=== PATIENT | male | born 1960 | race Caucasian/White ===

== ENCOUNTER 2017-12-09 06:02 | Emergency (ER) | payer BC ==
[2017-12-09] MEDS ORDERED: ASPIRIN 81 MG CHEWABLE TABLET ONE (06:33)
[2017-12-09] MEDS ORDERED: HEPARIN/D5W 25,000 UNIT/500 ML BAG IV ONE (06:34)
[2017-12-09] MEDS ORDERED: METOPROLOL TARTRATE 5 MG/5 ML INJ IV ONE (06:34)
[2017-12-09] MEDS ORDERED: NA CHLORIDE 0.9% 1,000 ML ONE (06:34)
[2017-12-09] MEDS ORDERED: FENTANYL CITR 100 MCG/2 ML ONE (06:34)
[2017-12-09] MEDS ORDERED: ONDANSETRON 4 MG/2 ML VIAL ONE (06:34)
[2017-12-09] MEDS ORDERED: HEPARIN 5000 UNIT/ML 1 ML VIAL ONE (06:35)
[2017-12-09 06:40] LABS: Absolute Lymphocytes (CBC) 1.6 K/uL (0.7-4.9); Absolute Monocytes 0.8 K/uL (0.1-1.3); Absolute Neutrophil 6.9 K/uL (1.8-8.0); Basophils % 0.9 % (0-1.3); Eosinophils % 2.2 % (0-4.4); Hematocrit 48.2 % (39.6-49.0); Lymphocytes % 17.2 % (15.3-44.8); MCH 32.5 pg (27.0-35.0); MCV 93.4 fL (80-100); MPV 8.6 fL (7.6-11.3); Monocytes % 7.9 % (3.3-12.3); RBC Red Blood Cell Count 5.16 M/uL (4.33-5.43)
[2017-12-09 06:46] LABS: Protime INR 1.06
--- NOTE | 2017-12-09 06:51 | EDPHYS ---
Physician Documentation [facility] Name: Seth Mclean Age: 57 yrs Sex: Male : 1960 Arrival Date: 12/09/2017 Time: 06:06 Bed 5 Private MD: ED Physician Jim Song HPI: 12/09 06:22 This 57 yrs old Male presents to ER via Unassigned with complaints of Chest jr8 Pain. 06:22 The patient or guardian reports chest pain that is located primarily in the epigastric jr8 area, anterior chest wall, right. Onset: acutely, this morning. The pain radiates to the right scapula. Associated signs and symptoms: The patient has no apparent associated signs or symptoms. The chest pain is described as causing indigestion, throbing. Duration: The patient or guardian reports a single episode, that is still ongoing. Modifying factors: The symptoms are alleviated by nothing. the symptoms are aggravated by nothing. Severity of pain: At its worst the pain was moderate in the emergency department the pain is unchanged. The patient has not experienced similar symptoms in the past. The patient has not recently seen a physician. Historical: - Allergies: 06:30 No Known Allergies; ea - Home Meds: 06:30 Cozaar Oral [Active]; Wellbutrin 100 mg Oral tab 1 tab 3 times per day [Active]; ea - PMHx: 06:30 Hyperlipidemia; Hypertension; melanoma; ea - PSHx: 06:30 exploratory surgery; ea - Immunization history:: Adult Immunizations up to date. - Social history:: Smoking status: Patient/guardian denies using tobacco. - Ebola Screening: : No symptoms or risks identified at this time. ROS: 06:22 Eyes: Negative for injury, pain, redness, and discharge, ENT: Negative for injury, jr8 pain, and discharge, Neck: Negative for injury, pain, and swelling, Respiratory: Negative for shortness of breath, cough, wheezing, and pleuritic chest pain, Abdomen/GI: Negative for abdominal pain, nausea, vomiting, diarrhea, and constipation, Back: Negative for injury and pain, MS/Extremity: Negative for injury and deformity, Skin: Negative for injury, rash, and discoloration, Neuro: Negative for headache, weakness, numbness, tingling, and seizure. 06:22 Cardiovascular: Positive for chest pain, Negative for edema, orthopnea, palpitations, paroxysmal nocturnal dyspnea. Exam: 06:22 Eyes: Pupils equal round and reactive to light, extra-ocular motions intact. Lids and jr8 lashes normal. Conjunctiva and sclera are non-icteric and not injected. Cornea within normal limits. Periorbital areas with no swelling, redness, or edema. ENT: Nares patent. No nasal discharge, no septal abnormalities noted. Tympanic membranes are normal and external auditory canals are clear. Oropharynx with no redness, swelling, or masses, exudates, or evidence of obstruction, uvula midline. Mucous membranes moist. Neck: Trachea midline, no thyromegaly or masses palpated, and no cervical lymphadenopathy. Supple, full range of motion without nuchal rigidity, or vertebral point tenderness. No Meningismus. Cardiovascular: Regular rate and rhythm with a normal S1 and S2. No gallops, murmurs, or rubs. Normal PMI, no JVD. No pulse deficits. Respiratory: Lungs have equal breath sounds bilaterally, clear to auscultation and percussion. No rales, rhonchi or wheezes noted. No increased work of breathing, no retractions or nasal flaring. Abdomen/GI: Soft, non-tender, with normal bowel sounds. No distension or tympany. No guarding or rebound. No evidence of tenderness throughout. Back: No spinal tenderness. No costovertebral tenderness. Full range of motion. Skin: Warm, dry with normal turgor. Normal color with no rashes, no lesions, and no evidence of cellulitis. MS/ Extremity: Pulses equal, no cyanosis. Neurovascular intact. Full, normal range of motion. Neuro: Awake and alert, GCS 15, oriented to person, place, time, and situation. Cranial nerves II-XII grossly intact. Motor strength 5/5 in all extremities. Sensory grossly intact. Cerebellar exam normal. Normal gait. 06:22 ECG was reviewed by the Attending Physician. Vital Signs: 06:15 BP 189 / 117; Pulse 90; Resp 19; Temp 98.6; Pulse Ox 98% ; Weight 137.89 kg; Height 5 ea ft. 10 in. (177.80 cm); Pain 9/10; 06:34 BP 181 / 118; Pulse 78; Resp 13; Pulse Ox 95% on R/A; ea 06:34 BP 178 / 107; Pulse 77; Resp 15; Pulse Ox 94% on R/A; ea 07:00 BP 160 / 103; Pulse 76; Resp 16 S; Pulse Ox 95% on R/A; jl7 07:15 BP 165 / 100; Pulse 70; Resp 18 S; Pulse Ox 94% on R/A; jl7 07:18 BP 150 / 86; Pulse 75; Resp 15 S; Pulse Ox 95% on R/A; Pain 1/10; jl7 07:30 BP 151 / 97; Pulse 73; Resp 19 S; Pulse Ox 94% on R/A; jl7 07:40 BP 166 / 102; Pulse 72; Resp 17 S; Pulse Ox 96% on R/A; jl7 06:15 Body Mass Index 43.62 (137.89 kg, 177.80 cm) ea MDM: 06:22 Patient medically screened. jr8 06:22 The patient was given aspirin in the Emergency Department. ED course: Dr. Moreno. No jr8 available for heart catheterization . 06:45 ED course: Consulted with Dr. Sethi at [facility] and will see patient for STEMI. jr8 To hold on plavix and TNKase for now. 06:49 Data reviewed: vital signs, nurses notes, lab test result(s), EKG, radiologic studies, jr8 plain films. Data interpreted: Pulse oximetry: on room air is 94 %. Interpretation: normal. Counseling: I had a detailed discussion with the patient and/or guardian regarding: the historical points, exam findings, and any diagnostic results supporting the discharge/admit diagnosis, lab results, radiology results, the need to transfer to another facility, for higher level of care, [facility] does not immediately have the required specialist. 07:08 ED course: Patient is going to be out of the 90 min perfusion window. TnKase initiated .jr8 07:29 ED course: Patient doing well. Pain almost completely alleviated . jr8 15:56 Response to treatment: the patient's symptoms have markedly improved after treatment, gs says pain free after tnk. ED course: pt seen and examined on arrival, supervised care and all decision making. 12/09 06:14 Order name: Basic Metabolic Panel; Complete Time: 07:11 jr8 12/09 06:14 Order name: CBC with Diff; Complete Time: 07:00 jr8 12/09 06:14 Order name: LFT's; Complete Time: 07:11 12/09 06:14 Order name: Magnesium; Complete Time: 07:11 12/09 06:14 Order name: NT PRO-BNP; Complete Time: 07:11 12/09 06:14 Order name: PT-INR; Complete Time: 06:51 12/09 06:14 Order name: Troponin (emerg Dept Use Only); Complete Time: 07:11 12/09 06:14 Order name: XRAY Chest (1 view) 12/09 06:14 Order name: EKG; Complete Time: 06:15 12/09 06:14 Order name: Cardiac monitoring; Complete Time: 06:36 12/09 06:14 Order name: EKG - Nurse/Tech; Complete Time: 06:37 12/09 06:14 Order name: IV Saline Lock; Complete Time: 06:37 12/09 06:14 Order name: Labs collected and sent; Complete Time: 06:37 12/09 06:14 Order name: O2 Per Protocol; Complete Time: 06:37 12/09 06:14 Order name: O2 Sat Monitoring; Complete Time: 06:37 EC:22 Rate is 85 beats/min. Rhythm is regular, Normal Sinus Rhythm. QRS [place] is Normal. ID jr8 interval is normal at 158 msec. QRS interval is normal at 110 msec. QT interval is prolonged at 466 msec. No Q waves. T waves are Normal. ST Segment is elevated in leads V2, V3, V4, V5, 2-5mm. Clinical impression: Anterior DC - acute and Lateral DC - acute. Interpreted by me. Reviewed by me. Administered Medications: 06:34 Drug: Lopressor 5 mg Route: IVP; Site: right forearm; ea 06:39 Follow up: Response: No adverse reaction ea 06:35 Drug: Aspirin Chewable Tablet 324 mg Route: PO; ea 06:39 Follow up: Response: No adverse reaction ea 06:35 Drug: Heparin (DC-Bolus with thrombolytic) - HEParin 60 units/kg {Co-Signature: jd3 lam (Ameya Saeed RN).} Route: IVP; Site: right forearm; 06:40 Follow up: Response: No adverse reaction ea 06:35 Drug: Heparin (DC Drip) 12 units/kg/hr - (HEParin 95362 units, D5W 500 ml) ea {Co-Signature: mandi (Ameya Saeed RN).} Route: IV; Rate: calculated rate; Site: right forearm; 07:54 Follow up: IV Status: Infusion continued upon transfer jl7 06:36 Drug: fentaNYL (PF) 50 mcg Route: IVP; Site: right forearm; ea 06:40 Follow up: Response: No adverse reaction ea 06:37 Drug: Zofran 4 mg Route: IVP; Site: right forearm; ea 06:40 Follow up: Response: No adverse reaction ea 07:18 Drug: Labetalol 5 mg Route: IVP; Infused Over: 2 mins; Site: left forearm; 07:18 Follow up: Response: No adverse reaction; Blood pressure is lowered jl7 07:22 Drug: Tenecteplase 50 mg {Co-Signature: bernice (Cecilia Peace RN).} Route: IV; Rate: jl7 calculated rate; Site: left forearm; 07:22 Follow up: IV Status: Completed infusion jl7 Disposition: 07:28 Critical Care:. jr8 18:02 Co-signature as Attending Physician, Jim Song MD. Disposition: 12/09/17 06:[address] [facility]. Diagnosis are ST elevation (STEMI) myocardial infarction of anterior wall, ST elevation (STEMI) myocardial infarction involving other sites. - Reason for transfer: Higher level of care. - Accepting physician is Dr. Sethi. - Condition is Fair. - Problem is new. - Symptoms have improved. Critical care time excluding procedures: 07:28 Critical care time: Bedside Care: 20 minutes, Consultation: 10 minutes. Total time: 30 jr8 minutes Signatures: Dispatcher [employer] EDMS Cecilia Peace RN RN fc Roszak, Josh, PA PA jr8 Jonathan Cornelius RN RN jl7 Yohana Fletcher RN RN ea Starr, Gregory, MD MD Ameya Saeed RN jbacilio queen Corrections: (The following items were deleted from the chart) 07:57 06:51 12/09/2017 06:[address] [facility]. Diagnosis is jl7 ST elevation (STEMI) myocardial infarction of anterior wall; ST elevation (STEMI) myocardial infarction involving other sites. Reason for transfer: Higher level of care. Accepting physician is Dr. Sethi. Condition is Fair. Problem is new. Symptoms have improved. jr8
--- NOTE | 2017-12-09 06:51 | ER ---
Nurse's Notes [facility] Name: Seth Mclean Age: 57 yrs Sex: Male : 1960 Arrival Date: 12/09/2017 Time: 06:06 Bed 5 Private MD: Diagnosis: ST elevation (STEMI) myocardial infarction of anterior wall;ST elevation (STEMI) myocardial infarction involving other sites Presentation: 12/09 06:15 Presenting complaint: Patient states: Pt reports he is having right shoulder and chest ea pain that started around 2 AM this morning. Pt reports he started feeling really gassy and felt like his blood pressure was elevated. Transition of care: patient was not received from another setting of care. Onset of symptoms was December 09, 2017. Risk Assessment: Do you want to hurt yourself or someone else? Patient reports no desire to harm self or others. Initial Sepsis Screen: Does the patient meet any 2 criteria? No. Patient's initial sepsis screen is negative. Does the patient have a suspected source of infection? No. Patient's initial sepsis screen is negative. Care prior to arrival: None. 06:15 Method Of Arrival: Ambulatory ea 06:15 Acuity: TORREY 2 ea Triage Assessment: 06:20 General: Appears uncomfortable, Behavior is cooperative, appropriate for age. Pain: ea Complains of pain in right scapular area and mid-sternal area Pain currently is 7 out of 10 on a pain scale. Quality of pain is described as aching, Pain began 2 AM Is continuous. Neuro: Level of Consciousness is awake, alert, obeys commands, Oriented to person, place, time, situation. Cardiovascular: Patient's skin is warm and dry. Respiratory: Airway is patent Respiratory effort is even, unlabored, Respiratory pattern is regular, symmetrical. Derm: Skin is clammy, Skin is pale, Skin temperature is warm. Musculoskeletal: Circulation, motion, and sensation intact. Historical: - Allergies: 06:30 No Known Allergies; ea - Home Meds: 06:30 Cozaar Oral [Active]; Wellbutrin 100 mg Oral tab 1 tab 3 times per day [Active]; ea - PMHx: 06:30 Hyperlipidemia; Hypertension; melanoma; ea - PSHx: 06:30 exploratory surgery; ea - Immunization history:: Adult Immunizations up to date. - Social history:: Smoking status: Patient/guardian denies using tobacco. - Ebola Screening: : No symptoms or risks identified at this time. Screenin:26 Abuse screen: Denies threats or abuse. Nutritional screening: No deficits noted. ea Tuberculosis screening: No symptoms or risk factors identified. Fall Risk None identified. Assessment: 06:28 General: see triage assessment.. jd3 06:28 Pain: Complains of pain in chest Pain radiates to right scapular area. jd3 06:28 Neuro: Level of Consciousness is awake, alert, obeys commands, Oriented to person, jd3 place, time, situation. Cardiovascular: Heart tones S1 S2 present Rhythm is ST elevation. Respiratory: Airway is patent Respiratory effort is even, unlabored, Respiratory pattern is regular, symmetrical, Breath sounds are clear bilaterally. Vital Signs: 06:15 BP 189 / 117; Pulse 90; Resp 19; Temp 98.6; Pulse Ox 98% ; Weight 137.89 kg; Height 5 ea ft. 10 in. (177.80 cm); Pain 9/10; 06:34 BP 181 / 118; Pulse 78; Resp 13; Pulse Ox 95% on R/A; ea 06:34 BP 178 / 107; Pulse 77; Resp 15; Pulse Ox 94% on R/A; ea 07:00 BP 160 / 103; Pulse 76; Resp 16 S; Pulse Ox 95% on R/A; jl7 07:15 BP 165 / 100; Pulse 70; Resp 18 S; Pulse Ox 94% on R/A; jl7 07:18 BP 150 / 86; Pulse 75; Resp 15 S; Pulse Ox 95% on R/A; Pain 1/10; jl7 07:30 BP 151 / 97; Pulse 73; Resp 19 S; Pulse Ox 94% on R/A; jl7 07:40 BP 166 / 102; Pulse 72; Resp 17 S; Pulse Ox 96% on R/A; jl7 06:15 Body Mass Index 43.62 (137.89 kg, 177.80 cm) ED Course: 06:06 Patient arrived in ED. am2 06:10 Micheal Clark PA is PHCP. jr8 06:10 Jim Song MD is Attending Physician. jr8 06:15 Patient has correct armband on for positive identification. Bed in low position. Call ea light in reach. Side rails up X2. automatic toe laster on. NIBP on. 06:15 Patient maintains SpO2 saturation greater than 95% on room air. ea 06:16 Arm band placed on right wrist. Patient placed in an exam room, on a stretcher, on ea line clearance foreman, on pulse oximetry. 06:23 Triage completed. ea 06:26 initiated transfer with Mckenna at the [facility]/. ms 06:27 Ameya Saeed, TONI is Primary Nurse. jd3 06:29 [address] e[address]'s to Dr. Gooden the community education coordinator production line manager for [facility]. ms 06:31 X-ray completed. Portable x-ray completed in exam room. Patient tolerated procedure ag1 well. 06:31 XRAY Chest (1 view) In Process Unspecified. EDMS 06:38 Inserted saline lock: 20 gauge in right forearm, using aseptic technique. Blood ea collected. 06:38 Inserted saline lock: 20 gauge in left forearm, using aseptic technique. ,using aseptic ea technique. placed by Cecilia Newberry RN. 06:39 administrative approval given/ patient going to the labor relations or personnel negotiator. Dr. Sethi has accepted eb the patient in transfer/ report to be called to [phone]/ [facility] called for transport. 07:15 Report given to TONI Boyd at [facility] Project Administrator. aa5 07:56 No provider procedures requiring assistance completed. Patient transferred, IV remains jl7 in place. intact, No redness/swelling at site. Administered Medications: 06:34 Drug: Lopressor 5 mg Route: IVP; Site: right forearm; ea 06:39 Follow up: Response: No adverse reaction ea 06:35 Drug: Aspirin Chewable Tablet 324 mg Route: PO; ea 06:39 Follow up: Response: No adverse reaction ea 06:35 Drug: Heparin (OR-Bolus with thrombolytic) - HEParin 60 units/kg {Co-Signature: mandi fritz (Ameya Saeed RN).} Route: IVP; Site: right forearm; 06:40 Follow up: Response: No adverse reaction ea 06:35 Drug: Heparin (OR Drip) 12 units/kg/hr - (HEParin 67925 units, D5W 500 ml) ea {Co-Signature: mandi (Ameya aSeed RN).} Route: IV; Rate: calculated rate; Site: right forearm; 07:54 Follow up: IV Status: Infusion continued upon transfer jl7 06:36 Drug: fentaNYL (PF) 50 mcg Route: IVP; Site: right forearm; ea 06:40 Follow up: Response: No adverse reaction ea 06:37 Drug: Zofran 4 mg Route: IVP; Site: right forearm; ea 06:40 Follow up: Response: No adverse reaction ea 07:18 Drug: Labetalol 5 mg Route: IVP; Infused Over: 2 mins; Site: left forearm; fc 07:18 Follow up: Response: No adverse reaction; Blood pressure is lowered jl7 07:22 Drug: Tenecteplase 50 mg {Co-Signature: bernice (Cecilia Peace RN).} Route: IV; Rate: jl7 calculated rate; Site: left forearm; 07:22 Follow up: IV Status: Completed infusion jl7 Outcome: 06:51 ER care complete, transfer ordered by . jr 07:56 Transferred by helicopter to [facility], Transfer form completed. jl7 X-rays sent w/ patient. 07:56 Condition: stable 07:56 Discharge instructions given to patient, Instructed on the need for transfer, Demonstrated understanding of instructions. 07:57 Patient left the ED. jl7 Signatures: Dispatcher [employer] EDCecilia Acosta, RN Kathi Whitley ms, Audri, RN RN aa5 Micheal Clark PA PA jr8 Em Shaw1 Jonathan Cornelius RN RN jl7 Alicia Kinsey Elena, RN RN ea Davies, Jonathon, RN RN jShaila Dillard RN, RN Corrections: (The following items were deleted from the chart) 06:40 06:28 General: see triage assessment.. mandi raymond
[2017-12-09 07:08] LABS: Bilirubin Direct 0.1 mg/dL (0-0.2); Bilirubin Total 0.3 mg/dL (0.2-1.0); Potassium 3.8 mmol/L (3.5-5.1)
[2017-12-09 07:09] LABS: Albumin 3.6 g/dL (3.4-5.0); Magnesium 2.4 mg/dL (1.8-2.4); Protein, Total 7.5 g/dL (6.4-8.2)
[2017-12-09 07:10] LABS: Troponin (Emerg Dept Use Only) 0.53 ng/mL (0.0-0.045)
[2017-12-09] MEDS ORDERED: TENECTEPLASE 50 MG/10 ML VIAL IV ONE (07:20)
[2017-12-09] MEDS ORDERED: LABETALOL 20 MG/4ML SYRINGE IV ONE (07:25)
--- NOTE | 2017-12-09 11:56 | RAD REPORT ---
EXAM DESCRIPTION: RAD - Chest Single View - 12/09/2017 6:33 am CLINICAL HISTORY: Chest pain COMPARISON: None. TECHNIQUE: AP portable chest image was obtained 0617 hour . FINDINGS: No peripheral consolidation or mass. Interstitial markings are prominent throughout the zach ng ruiz. As a baseline study fibrosis, interstitial edema and infiltrate have a similar appearance. No upper lobe vascular engorgement. Heart size is normal range for body habitus and portable techniq ue. No measurable pleural effusion and no pneumothorax. No acute bony abnormality seen. No acute aort ic findings suspected. IMPRESSION: Diffusely prominent interstitial markings throughout the lung ruiz without a periphera l mass or consolidation. As a baseline study, fibrosis, interstitial edema and infectious infiltrate all have a similar appear ance.
--- NOTE | 2017-12-09 12:26 | EKG ---
Test Date: 2017-12-09 Test Time: 06:09:37 Fleece Tier: STANISLAW MEASUREMENT RESULTS: Intervals: Rate: 85 MN: 158 QRSD: 110 QT: 392 QTc: 466 [place]: P: 42 MN: 158 QRS: 9 T: 46 INTERPRETIVE STATEMENTS: Normal sinus rhythm Anteroseptal infarct, possibly acute Lateral injury pattern ACUTE NV / STEMI Abnormal ECG No previous ECG available for comparison Electronically Signed On 12-09-17 12:25:32 CDT by Ranjan Moreno
--- NOTE | 2017-12-10 19:17 | EKG ---
Test Date: 2017-12-09 Test Time: 06:20:31 Shop Manager: EUGENIA MEASUREMENT RESULTS: Intervals: Rate: 90 IN: 162 QRSD: 108 QT: 392 QTc: 479 Gem: P: 41 IN: 162 QRS: 17 T: 43 INTERPRETIVE STATEMENTS: Normal sinus rhythm Possible Left atrial enlargement Anteroseptal infarct, possibly acute Lateral injury pattern ACUTE NE Abnormal ECG Compared to ECG 12/09/2017 06:09:37 No significant changes Electronically Signed On 12-10-17 19:15:03 CDT by Ranjan Moreno
== END 2017-12-09 07:57 | disposition short-term general hospital (02) ==
LOC: ER 06:02
DX: I21.09 ST elevation (STEMI) myocardial infarction involving other coronary artery of anterior wall (principal); I21.29 ST elevation (STEMI) myocardial infarction involving other sites; I10 Essential (primary) hypertension; E78.5 Hyperlipidemia, unspecified
CPT/HCPCS: 36415; 71045; 80048; 80076; 83735; 83880; 84484; 85025; 85610; 92977; 93005; 99285; J1644; J2405; J3010; J3101; J7030